=== PATIENT | male | born 2000 | race Caucasian/White ===

== ENCOUNTER 2018-04-07 00:23 | Emergency (ER) | payer BC, OTHER ==
[2018-04-07] MEDS ORDERED: ONDANSETRON 4 MG/2 ML VIAL IVP ONE (01:02)
[2018-04-07 01:26] LABS: PLATELET COUNT 363 10^3/uL (150-400)
[2018-04-07] MEDS ORDERED: PROMETHAZINE HCL 25 MG/ML INJ IVP ONE (01:36)
[2018-04-07] MEDS ORDERED: NS 1,000 ML IV ONE (01:36)
[2018-04-07] MEDS ORDERED: LORazepam 2 MG/ML INJ IVP ONE (01:37)
[2018-04-07] MEDS ORDERED: PROMETHAZINE 25 MG PREPACK #4 BTL TAKEHOME ONE (03:53)
--- NOTE | 2018-04-07 03:53 | EDPHY ---
H & P Stated Complaint: nausea vomiting x 2 days no diarrhea Time Seen by Provider: 04/07/18 01:27 HPI/ROS: HPI The patient presents with 2 days of nausea and vomiting which started slowly and have gotten progressively worse. He says for the last several months he has experienced daily nausea in the morning upon awakening. He was evaluated at [facility] with a normal workup. He has had minimal symptoms until yesterday when he began vomiting. He says he has vomited about 20-30 times today and has not been able to take anything by mouth including water. He does not have any abdominal pain with this. He does not have any diarrhea or fever. He does have a history of an SBO, etiology unclear in 5th grade that required surgical resection. He does use daily marijuana for the last 3 years. REVIEW OF SYSTEMS 10 systems were reviewed and negative with the exception of the elements mentioned in the history of present illness. PMHx: Small-bowel obstruction of some sort in the 5th grade Soc Hx: [employer] student, daily marijuana, occasional alcohol PHYSICAL General Appearance: Alert, no distress Eyes: Pupils equal and round no pallor or injection ENT, Mouth: Mucous membranes dry Respiratory: There are no retractions, lungs are clear to auscultation Cardiovascular: Regular rate and rhythm Gastrointestinal: Abdomen is soft and non-tender, no masses, bowel sounds normal Neurological: A&O, moves all extremities Skin: Warm and dry, no rashes Musculoskeletal: Neck is supple non tender Extremities: symmetrical, full range of motion Psychiatric: Patient is oriented X 3, there is no agitation Source: Patient Exam Limitations: No limitations - Personal History Current Tetanus/Diphtheria Vaccine: Yes Current Tetanus Diphtheria and Acellular Pertussis (TDAP): Yes - Medical/Surgical History Hx Asthma: No Hx Chronic Respiratory Disease: No Hx Diabetes: No Hx Cardiac Disease: No Hx Renal Disease: No Hx Cirrhosis: No Hx Alcoholism: No Hx HIV/AIDS: No Hx Splenectomy or Spleen Trauma: No Other PMH: bowel obstruction 9 yr old - Social History Smoking Status: Current every day smoker Constitutional: Initial Vital Signs Temperature (C) 36.5 C 04/07/18 00:30 Heart Rate 86 04/07/18 00:30 Respiratory Rate 18 04/07/18 00:30 Blood Pressure 122/81 H 04/07/18 00:30 O2 Sat (%) 98 04/07/18 00:30 O2 Delivery Mode Room Air Allergies/Adverse Reactions: No Known Allergies Allergy (Unverified 04/07/18 00:29) Home Medications: Medication Instructions Recorded NK [No Known Home Meds] 04/07/18 Ondansetron 04/07/18 Medical Decision Making Differential Diagnosis: 17-year-old male with history of SBO presents with nausea and vomiting for the last 2 days. On exam, he appears clinically dehydrated though his abdominal exam is benign and he does not have any distension. In the emergency department, the patient was given IV fluids and Zofran with some improvement in his symptoms. He had some ongoing nausea so he then received an additional L as well as Phenergan and Ativan with improvement in his symptoms. He was able to tolerate fluids without difficulty. Labs were checked and did reveal a leukocytosis. I suspect he could have a viral gastroenteritis, toxin mediated enterocolitis or cannabinoid hyperemesis syndrome and I have discussed these things with him. I have considered small-bowel obstruction, however I feel this is much less likely given benign abdominal exam and ability to tolerate p.o.. - Data Points Laboratory Results: Laboratory Results 04/07/18 00:45 04/07/18 00:45 04/07/18 04/07/18 00:45 00:45 WBC 14.51 10^3/uL H 10^3/uL (3.80-9.50) RBC 5.20 10^6/uL 10^6/uL (4.40-6.38) Hgb 15.2 g/dL g/dL (13.7-17.5) Hct 43.8 % % (40.0-51.0) MCV 84.2 fL fL (81.5-99.8) MCH 29.2 pg pg (27.9-34.1) MCHC 34.7 g/dL g/dL (32.4-36.7) RDW 13.0 % % (11.5-15.2) Plt Count 363 10^3/uL 10^3/uL (150-400) MPV 9.5 fL fL (8.7-11.7) Neut % (Auto) 76.1 % H % (39.3-74.2) Lymph % (Auto) 16.3 % % (15.0-45.0) [place] % (Auto) 6.6 % % (4.5-13.0) Eos % (Auto) 0.3 % L % (0.6-7.6) Baso % (Auto) 0.3 % % (0.3-1.7) Nucleat RBC Rel Count 0.0 % % (0.0-0.2) Absolute Neuts (auto) 11.04 10^3/uL H 10^3/uL (1.70-6.50) Absolute Lymphs (auto) 2.37 10^3/uL 10^3/uL (1.00-3.00) Absolute Monos (auto) 0.96 10^3/uL H 10^3/uL (0.30-0.80) Absolute Eos (auto) 0.04 10^3/uL 10^3/uL (0.03-0.40) Absolute Basos (auto) 0.04 10^3/uL 10^3/uL (0.02-0.10) Absolute Nucleated RBC 0.00 10^3/uL 10^3/uL (0-0.01) Immature Gran % 0.4 % % (0.0-1.1) Immature Gran # 0.06 10^3/uL 10^3/uL (0.00-0.10) Sodium 141 mEq/L mEq/L (135-145) Potassium 3.1 mEq/L L mEq/L (3.3-5.0) Chloride 101 mEq/L mEq/L (97-110) Carbon Dioxide 26 mEq/l mEq/l (22-31) Anion Gap 14 mEq/L mEq/L (8-16) BUN 10 mg/dL mg/dL (7-23) Creatinine 1.0 mg/dL mg/dL (0.7-1.3) Estimated GFR > 60 Glucose 97 mg/dL mg/dL (70-100) Calcium 10.1 mg/dL mg/dL (8.5-10.4) Medications Given: Discontinued Medications Sodium Chloride (Ns) 1,000 mls @ 0 mls/hr IV EDNOW ONE; Wide Open PRN Reason: Protocol Stop: 04/07/18 01:37 Last Admin: 04/07/18 01:45 Dose: 1,000 mls Lorazepam (Ativan Injection) 0.5 mg IVP EDNOW ONE Stop: 04/07/18 01:38 Last Admin: 04/07/18 01:45 Dose: 0.5 mg Ondansetron HCl (Zofran) 4 mg IVP EDNOW ONE Stop: 04/07/18 01:03 Last Admin: 04/07/18 01:08 Dose: 4 mg Promethazine HCl (Phenergan) 6.25 mg IVP ONCE ONE Stop: 04/07/18 01:37 Last Admin: 04/07/18 01:45 Dose: 6.25 mg Departure - Departure Disposition: Home, Routine, Self-Care Clinical Impression: Nausea & vomiting Qualifiers: Vomiting type: unspecified Vomiting Intractability: non-intractable Qualified Code(s): R11.2 - Nausea with vomiting, unspecified Condition: Good Instructions: Promethazine (Into the rectum), Acute Nausea and Vomiting (ED) Additional Instructions: Please follow-up at [facility] in 1-2 days. You should return to the emergency department if your worse in any way. Referrals: [facility] [Clinic] - As per Instructions
[2018-04-07 04:08] VITALS: BP 115/73
== END 2018-04-07 04:16 | disposition home or self-care (01) ==
DX: R11.2 Nausea with vomiting, unspecified (principal); E86.9 Volume depletion, unspecified; F17.200 Nicotine dependence, unspecified, uncomplicated
CPT/HCPCS: 96374; J2060; J2405; J2550

== ENCOUNTER 2018-04-10 14:07 | Emergency (ER) | payer BC, OTHER ==
[2018-04-10] MEDS ORDERED: METOCLOPRAMIDE 10 MG/2 ML VIAL IVP ONE (15:29)
[2018-04-10] MEDS ORDERED: NS 1,000 ML IV ONE ×2 (15:29)
[2018-04-10] MEDS ORDERED: KETOROLAC 30 MG/1 ML SDV IVP ONE (15:29)
--- NOTE | 2018-04-10 15:29 | EDPHY ---
H & P Time Seen by Provider: 04/10/18 14:50 HPI/ROS: Chief complaint. Nausea vomiting, headache HPI. 17-year-old male presents emergency department with complaint of vomiting for the last several weeks. No diarrhea but having regular bowel movements. Today left-sided headache with slight blurry vision and a sense of hard to connect words. He has had migraines in the past. Seen in our emergency department April 07 3 days ago for similar symptoms. Denies recent head injury or fever. No chest pain or shortness of breath. No abdominal pain but just nausea and vomiting. ROS 10 systems were reviewed and negative with the exception of the elements mentioned in the history of present illness Past Medical/Surgical History: Small-bowel obstruction at 9 years old Social History: Single, nonsmoker, no alcohol. Daily marijuana use Smoking Status: Former smoker Physical Exam: General Appearance: Alert well-developed male mild distress vital signs are stable Eyes: Pupils equal and round no pallor or injection. ENT, tympanic membranes are normal. Pharynx without injection. Mucous membranes are dry Respiratory: There are no retractions, lungs are clear to auscultation. Cardiovascular: Regular rate and rhythm. Gastrointestinal: Abdomen is soft and nontender, no masses, bowel sounds normal. Neurological: Awake and alert, sensory and motor exams grossly normal. Conversational Skin: Warm and dry, no rashes. Musculoskeletal: Neck is supple nontender. Extremities symmetrical, full range of motion. Psychiatric: Patient is oriented X 3, there is no agitation. Constitutional: Initial Vital Signs Temperature (C) 36.7 C 04/10/18 14:15 Heart Rate 86 04/10/18 14:15 Respiratory Rate 16 04/10/18 14:15 Blood Pressure 95/72 L 04/10/18 14:15 O2 Sat (%) 97 04/10/18 14:15 O2 Delivery Mode Room Air Allergies/Adverse Reactions: No Known Allergies Allergy (Verified 04/10/18 14:14) Home Medications: Medication Instructions Recorded Ondansetron 04/07/18 Promethazine HCl [Phenergan 25mg 25 mg PO Q4-6PRN PRN #10 tab 04/10/18 (*)] Medical Decision Making Procedures: IV normal saline. 2 L are ordered. Reglan Benadryl Ativan IV ED Course/Re-evaluation: Re-evaluation 4:15 p.m. Patient is resting comfortably. He has just finished his 1st bag of saline. He has a 2nd L of saline home. Re-evaluation 4:35 p.m. Patient feeling better heat. He tells me no headache. No nausea. He has not had vomiting. Patient and I discussed treatment plan including criteria for return importance of follow-up further evaluation. He expresses understanding and agreement Differential Diagnosis: Patient may have cyclic vomiting syndrome. This appears to be migraine headache. Symptoms have resolved with symptomatic treatment. - Data Points Laboratory Results: Laboratory Results 04/10/18 01:54 04/10/18 01:54 04/10/18 04/10/18 01:54 01:54 WBC 11.59 10^3/uL H 10^3/uL (3.80-9.50) RBC 5.65 10^6/uL 10^6/uL (4.40-6.38) Hgb 16.7 g/dL g/dL (13.7-17.5) Hct 47.1 % % (40.0-51.0) MCV 83.4 fL fL (81.5-99.8) MCH 29.6 pg pg (27.9-34.1) MCHC 35.5 g/dL g/dL (32.4-36.7) RDW 13.0 % % (11.5-15.2) Plt Count 388 10^3/uL 10^3/uL (150-400) MPV 9.5 fL fL (8.7-11.7) Neut % (Auto) 77.1 % H % (39.3-74.2) Lymph % (Auto) 14.9 % L % (15.0-45.0) [place] % (Auto) 7.2 % % (4.5-13.0) Eos % (Auto) 0.2 % L % (0.6-7.6) Baso % (Auto) 0.3 % % (0.3-1.7) Nucleat RBC Rel Count 0.0 % % (0.0-0.2) Absolute Neuts (auto) 8.93 10^3/uL H 10^3/uL (1.70-6.50) Absolute Lymphs (auto) 1.73 10^3/uL 10^3/uL (1.00-3.00) Absolute Monos (auto) 0.84 10^3/uL H 10^3/uL (0.30-0.80) Absolute Eos (auto) 0.02 10^3/uL L 10^3/uL (0.03-0.40) Absolute Basos (auto) 0.04 10^3/uL 10^3/uL (0.02-0.10) Absolute Nucleated RBC 0.00 10^3/uL 10^3/uL (0-0.01) Immature Gran % 0.3 % % (0.0-1.1) Immature Gran # 0.03 10^3/uL 10^3/uL (0.00-0.10) Sodium 142 mEq/L mEq/L (135-145) Potassium 3.7 mEq/L mEq/L (3.3-5.0) Chloride 102 mEq/L mEq/L (97-110) Carbon Dioxide 20 mEq/l L mEq/l (22-31) Anion Gap 20 mEq/L H mEq/L (8-16) BUN 8 mg/dL mg/dL (7-23) Creatinine 1.0 mg/dL mg/dL (0.7-1.3) Estimated GFR > 60 Glucose 87 mg/dL mg/dL (70-100) Calcium 10.7 mg/dL H mg/dL (8.5-10.4) Phosphorus 3.1 mg/dL mg/dL (2.5-4.5) Medications Given: Discontinued Medications Diphenhydramine HCl (Benadryl Injection) 12.5 mg IVP EDNOW ONE Stop: 04/10/18 15:30 Last Admin: 04/10/18 15:49 Dose: 12.5 mg Sodium Chloride (Ns) 1,000 mls @ 0 mls/hr IV EDNOW ONE; Wide Open PRN Reason: Protocol Stop: 04/10/18 15:30 Last Admin: 04/10/18 15:47 Dose: 1,000 mls Sodium Chloride (Ns) 1,000 mls @ 0 mls/hr IV EDNOW ONE; Wide Open PRN Reason: Protocol Stop: 04/10/18 15:30 Last Admin: 04/10/18 16:17 Dose: 1,000 mls Ketorolac Tromethamine (Toradol) 30 mg IVP EDNOW ONE Stop: 04/10/18 15:30 Last Admin: 04/10/18 15:52 Dose: 30 mg Lorazepam (Ativan Injection) 0.5 mg IVP EDNOW ONE Stop: 04/10/18 15:31 Last Admin: 04/10/18 15:47 Dose: 0.5 mg Metoclopramide HCl (Reglan Injection) 10 mg IVP EDNOW ONE Stop: 04/10/18 15:30 Last Admin: 04/10/18 15:50 Dose: 10 mg Departure - Departure Disposition: Home, Routine, Self-Care Clinical Impression: Migraine headache Qualifiers: Migraine type: unspecified Status migrainosus presence: without status migrainosus Intractability: not intractable Qualified Code(s): G43.909 - Migraine, unspecified, not intractable, without status migrainosus Condition: Good Instructions: Migraine Headache (ED) Additional Instructions: Frequent, small sips fluids while nauseated. Phenergan as needed for nausea and vomiting. Tylenol 1000 mg every 6 hr, ibuprofen 600 mg every 6 hr as needed for headache. Return for worsening symptoms Recheck at [facility] in the next 1-2 days without fail Referrals: NONE *PRIMARY CARE P,. [Primary Care Provider] - As per Instructions [facility] [Outside] - 1-2 days without fail Prescriptions: Promethazine HCl [Phenergan 25mg (*)] 25 mg PO Q4-6PRN PRN #10 tab PRN Reason: Nausea/Vomiting, Use 1st
[2018-04-10] MEDS ORDERED: LORazepam 2 MG/ML INJ IVP ONE (15:30)
[2018-04-10 16:15] LABS: PLATELET COUNT 388 10^3/uL (150-400)
[2018-04-10 17:32] VITALS: BP 113/66
== END 2018-04-10 17:32 | disposition home or self-care (01) ==
DX: G43.909 Migraine, unspecified, not intractable, without status migrainosus (principal); E86.9 Volume depletion, unspecified
CPT/HCPCS: 96374; J1200; J1885; J2060; J2765